=== PATIENT | female | born 1980 | race Caucasian/White ===

== ENCOUNTER 2017-11-07 15:14 | Outpatient (CLI) | payer OTHER ==
[~2017-11-07 15:14] MED LIST: Iopamidol 370 76% 100 ML VIAL ONE
--- NOTE | 2017-11-07 16:51 | CT ---
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 Hoarseness. FINDINGS: No abnormality is identified involving the trachea, thyroid gland, or larynx. The parapharyngeal, per ivertebral, parotid, carotid, submandibular, retropharyngeal, posterior cervical, rn telemetry, submand ibular, and sublingual spaces, are unremarkable. Minimal mucosal thickening at the nasopharynx. No ma mariana osseous abnormality. No mass or lymphadenopathy in the neck or upper mediastinum, including aorto pulmonic window, or around the subclavian arteries or brachiocephalic artery. Lung apices are grossly clear. IMPRESSION: Negative. POS: DAVID
== END 2017-11-07 15:15 | disposition home or self-care (01) ==
LOC: SCSCT 15:14
PROVIDERS: ATTEND Family Medicine
DX: C69.42 Malignant neoplasm of left ciliary body (principal); R22.1 Localized swelling, mass and lump, neck
CPT/HCPCS: 70491